=== PATIENT | female | born 1970 | race American Indian/Alaskan Native ===

== ENCOUNTER 2016-05-29 18:13 | Emergency (ER) | payer SELFPAY ==
[2016-05-30] MEDS ORDERED: TORADOL IM ONE (02:44)
--- NOTE | 2016-05-30 02:44 | Emergency Department Report ---
ED General Adult HPI - General Chief complaint: High BP Stated complaint: HIGH BP Time Seen by Provider: 05/30/16 02:30 Source: patient Mode of arrival: Ambulatory Limitations: No Limitations - History of Present Illness Initial comments: This is a pleasant 45-year-old female who indicates that she has been off her blood pressure medication for 3 weeks due to recent relocation to [place] from [place]. She states she used to be on amlodipine as well as atenolol. She has noticed over the past couple of weeks a restless sensation. She states that she has difficulty sleeping at night. She reports 4 reports feeling fidgety at home. She attributes these to her blood pressure being elevated. Patient indicates as well that she's had on and off tingling sensation and numbness sensation of her hands. This sometimes will even wake her from sleep. She is able to wake up and rub it her hands and it resolves. She denies any problems with this associated with her feet. It does not seem to be related to anxiety according to the patient. She does occasionally get neck tightness but does not endorse any neck trauma or radiculopathy per se. Patient does complain of headache at this time. She states she does get migraine headaches regularly. She usually just takes aspirin home for these. Patient reports on and off chest pains as well. She denies any shortness of breath. Patient does report however left calf tenderness 2 weeks. 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 -: Gradual Severity scale (0 -10): 7 Quality: aching Improves with: none Worsens with: none - Related Data Previous Rx's Medication Instructions Recorded Last Taken Type Atenolol [Tenormin] 50 mg PO DAILY #30 tab 05/30/16 Unknown Rx amLODIPine [Norvasc] 10 mg PO DAILY #30 tab 05/30/16 Unknown Rx Allergies Allergy/AdvReac Type Severity Reaction Status Date / Time No Known Allergies Allergy Verified 05/29/16 18:26 ED Review of Systems ROS: Stated complaint: HIGH BP Other details as noted in HPI Comment: All other systems reviewed and negative Constitutional: denies: chills, fever Eyes: denies: eye pain, eye discharge, vision change ENT: denies: ear pain, throat pain Respiratory: denies: cough, shortness of breath, wheezing Cardiovascular: chest pain. denies: palpitations Endocrine: no symptoms reported Gastrointestinal: denies: abdominal pain, nausea, diarrhea Genitourinary: denies: urgency, dysuria, discharge Musculoskeletal: arthralgia, other (calf swelling). denies: back pain, joint swelling Skin: denies: rash, lesions Neurological: headache. denies: weakness, paresthesias Psychiatric: denies: anxiety, depression Hematological/Lymphatic: denies: easy bleeding, easy bruising ED Past Medical Hx - Past Medical History Previous Medical History?: Yes Hx Hypertension: Yes - Surgical History Past Surgical History?: No - Social History Smoking Status: Never Smoker Substance Use Type: Alcohol - Medications Home Medications: Home Medications Medication Instructions Recorded Confirmed Last Taken Type Atenolol [Tenormin] 50 mg PO DAILY #30 tab 05/30/16 Unknown Rx amLODIPine [Norvasc] 10 mg PO DAILY #30 tab 05/30/16 Unknown Rx ED Physical Exam - General Limitations: No Limitations General appearance: alert, in no apparent distress, obese - Head Head exam: Present: atraumatic, normocephalic - Eye Eye exam: Present: normal appearance, EOMI. Absent: scleral icterus - ENT ENT exam: Present: normal exam, normal orophraynx, mucous membranes moist - Neck Neck exam: Present: tenderness (posterior aspect with paracervical mild tenderness. No spasming noted. No midline tenderness or bony step-off appreciated.), full ROM. Absent: lymphadenopathy - Respiratory Respiratory exam: Present: normal lung sounds bilaterally. Absent: respiratory distress, wheezes, rales - Cardiovascular Cardiovascular Exam: Present: regular rate, normal rhythm. Absent: systolic murmur, diastolic murmur, rubs, gallop - GI/Abdominal GI/Abdominal exam: Present: soft, normal bowel sounds. Absent: distended, tenderness, guarding - Extremities Exam Extremities exam: Present: normal inspection, other (unremarkable exam. Tinel and Phalen's tests are negative. Equal distal radial pulses bilaterally. Intrinsic muscles of the hands are intact. Normal sensation is noted.) - Back Exam Back exam: Present: normal inspection, full ROM. Absent: tenderness, CVA tenderness (R), CVA tenderness (L) - Neurological Exam Neurological exam: Present: alert, oriented X3, other (intact grossly. Moving around the room without difficulties.) - Psychiatric Psychiatric exam: Present: normal affect, normal mood - Skin Skin exam: Present: warm, dry, intact, normal color. Absent: rash ED Course Vital Signs 05/29/16 05/30/16 05/30/16 18:23 00:50 01:45 Temperature 98.1 F Pulse Rate 87 88 75 Respiratory 18 20 Rate Blood Pressure 204/116 Blood Pressure 199/104 168/96 [Left] O2 Sat by Pulse 100 99 Oximetry - Reevaluation(s) Reevaluation #1: 05/30/16 02:31 ECG at 1828 with sinus rhythm at 85 bpm. Normal NM and QRS. Nonspecific T wave abnormalities are noted. Does have voltage criteria for LVH. Isoelectric. Reevaluation #2: 05/30/16 02:48 Vital signs are noted. Patient noted to be quite hypertensive. I will get her back on her primary medications of atenolol and amlodipine. Given oral doses here. In addition I did give Toradol for her headache. I am interested in pursuing possibility of PE/DVT given her left calf tenderness. I doubt at this time. By given the risk factor of having had prior PE I feel this is necessary. ECG demonstrates nonspecific. I have a low suspicion for cardiac etiology. I do strongly questioned the numbness sensation of the hands being related to probable carpal tunnel versus cubital tunnel syndromes. Reevaluation #3: 05/30/16 05:27 D-dimer is negative. This is reassuring for me. I do not suspect DVT or PE at this point. Her blood pressure did improve with medication. Her headache resolved as well. I did encourage her to follow-up with a primary physician contacted for continued care regarding her paresthesias in the hands. She was encouraged to be on a iron rich diet if she likely has iron deficiency anemia as well. Safe for home. ED Medical Decision Making - Lab Data Result diagrams: 05/30/16 03:07 05/30/16 03:07 Critical care attestation.: If time is entered above; I have spent that time in minutes in the direct care of this critically ill patient, excluding procedure time. ED Disposition Clinical Impression: Paresthesia of both hands HTN (hypertension) Qualifiers: Hypertension type: essential hypertension Qualified Code(s): I10 - Essential ( primary) hypertension Headache Qualifiers: Headache type: tension-type Headache chronicity pattern: acute headache Intractability: not intractable Qualified Code(s): G44.209 - Tension-type headache, unspecified, not intractable Iron deficiency anemia Qualifiers: Iron deficiency anemia type: unspecified iron deficiency Qualified Code(s): D50.9 - Iron deficiency anemia, unspecified Disposition: DISCHARGED TO HOME OR SELFCARE Is pt being admited?: No Does the pt Need Aspirin: No Condition: Stable Instructions: Iron Deficiency Anemia (ED), Iron Rich Diet (ED) Additional Instructions: Eat a healthy diet. Take iron supplementation for multivitamin. Take this with vitamin C to help absorb iron. Establish care with a primary physician for continued management of your high blood pressure as well as further evaluation regarding your discomforts of your hands and feet. Prescriptions: amLODIPine [Norvasc] 10 mg PO DAILY #30 tab Atenolol [Tenormin] 50 mg PO DAILY #30 tab Referrals: [facility] [Provider Group] - 3-5 Days [facility] [Provider Group] - 3-5 Days Time of Disposition: 04:54
[2016-05-30] MEDS ORDERED: NORVASC PO ONE (02:50)
[2016-05-30] MEDS ORDERED: TENORMIN PO ONE (02:50)
[2016-05-30 03:40] LABS: Alanine Aminotransferase 26 units/L (7-56); Albumin 4.2 g/dL (3.9-5); Albumin/Globulin Ratio 1.4 %; Alkaline Phosphatase 56 units/L (35-129); Anion Gap 16 mmol/L; BUN/Creatinine Ratio 12.22; Bilirubin,Total 0.2 mg/dL (0.1-1.2); Blood Urea Nitrogen 11 mg/dL (7-17); Carbon Dioxide 26 mmol/L (22-30); Chloride 101.4 mmol/L (98-107); Glucose 120 mg/dL (65-100); Potassium 3.9 mmol/L (3.6-5.0); Sodium 139 mmol/L (137-145); Total Protein 7.2 g/dL (6.3-8.2)
[2016-05-30 03:43] LABS: Basophils % (Auto) 0.3 % (0.0-1.8); Eosinophils % (Auto) 1.8 % (0.0-4.3); Hematocrit 30.5 % (30.3-42.9); Hemoglobin 9.4 gm/dl (10.1-14.3); Mean Corpuscular HGB Conc 31 % (30-34); Platelet Count 222 K/mm3 (140-440); Red Blood Count 4.44 M/mm3 (3.65-5.03); Red Cell Distribution Width 18.9 % (13.2-15.2); White Blood Count 4.4 K/mm3 (4.5-11.0)
[2016-05-30 03:57] LABS: Mean Corpuscular Hemoglobin 21 pg (28-32); Mean Corpuscular Volume 69 fl (79-97)
[2016-05-30 05:06] VITALS: BP 165/78
== END 2016-05-30 05:06 | disposition home or self-care (01) ==
LOC: ED 18:13
DX: I10 Essential (primary) hypertension (principal); R20.9 Unspecified disturbances of skin sensation; G44.209 Tension-type headache, unspecified, not intractable; D50.9 Iron deficiency anemia, unspecified
CPT/HCPCS: 36415; 80053; 85025; 85379; 93005; 93010; 96372; 99283; J1885